=== PATIENT | male | born 1970 | race American Indian/Alaskan Native ===

== ENCOUNTER 2017-01-26 10:29 | Observation (INO) | payer OTHER ==
[2017-01-26 10:43] VITALS: BMI 27.1
[2017-01-26] MEDS ORDERED: HYDROmorphone 0.5 mg/0.5 ml ISec ONE (10:45)
[2017-01-26] MEDS ORDERED: Sodium Chloride 0.9% 1,000 ML IV ONE (11:00)
--- NOTE | 2017-01-26 11:01 | ED PDOC ---
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 no trauma Past Medical History Reviewed: Historical Data, Nursing Documentation, Vital Signs Vital Signs: Last Vital Signs Temp 97.1 F L 01/26/17 11:00 Pulse 53 L 01/26/17 12:00 Resp 16 01/26/17 12:00 BP 123/67 01/26/17 12:00 Pulse Ox 98 01/26/17 12:00 - Medical History PMH: No Chronic Diseases - Surgical History Surgical History: No Surg Hx - Family History Family History: States: Unknown Family Hx - Living Arrangements Living Arrangements: With Family - Social History Current smoker - smoking cessation education provided: No Alcohol: None Drugs: Denies - Allergies Allergies/Adverse Reactions: Allergies Allergy/AdvReac Type Severity Reaction Status Date / Time No Known Allergies Allergy Verified 01/26/17 10:56 CLAYTON Risk Score for UA/NSTEMI - CLAYTON Risk Score Age > 64: NO 3 or more CAD Risk Factors: NO Known CAD (Stenosis greater than 50%): NO Aspirin use in past 7 days: NO Severe Angina: NO EKG ST changes greater than 0.5mm: NO Positive Cardiac Marker: NO CLAYTON Score: 0 Risk %: 5% Wells Criteria for PE - Wells Criteria for Pulmonary Embolism Clinical Signs and Symptoms of DVT: No P.E is #1 Diagnosis, or Equally Likely: No Heart Rate >100: No Immobilization at least 3 days;Surgery previous 4 weeks: No Previous, objectively diagnosed PE or DVT: No Hemoptysis: No Malignancy w/treatment within 6 months, or palliative: No Total Score: 0 Review of Systems ROS Statement: Except As Marked, All Systems Reviewed And Found Negative Constitutional: Negative for: Fever, Chills Cardiovascular: Positive for: Chest Pain. Negative for: Edema, Light Headedness Respiratory: Negative for: Cough, Shortness of Breath Gastrointestinal: Negative for: Nausea, Vomiting, Abdominal Pain Genitourinary Male: Negative for: Dysuria Neurological: Negative for: Weakness, Numbness Physical Exam - Reviewed Nursing Documentation Reviewed: Yes Vital Signs Reviewed: Yes - Physical Exam Appears: Positive for: In Acute Distress (mod obvious pain) Head Exam: Positive for: ATRAUMATIC, NORMAL INSPECTION, NORMOCEPHALIC Skin: Positive for: Diaphoresis Eye Exam: Positive for: Normal appearance, EOMI, PERRL ENT: Positive for: Pharynx Is (clear,mmm) Neck: Positive for: Normal, Painless ROM, Supple Cardiovascular/Chest: Positive for: Chest Non Tender, Bradycardia. Negative for : Edema, Gallop, Murmur, Tachycardia Respiratory: Positive for: Normal Breath Sounds. Negative for: Decreased Breath Sounds, Accessory Muscle Use, Crackles, Rales, Rhonchi, Stridor, Wheezing Pulses-Radial (L): 2+ Pulses-Radial (R): 2+ Gastrointestinal/Abdominal: Positive for: Normal Exam, Bowel Sounds, Soft. Negative for: Tenderness Back: Positive for: Normal Inspection. Negative for: Vertebral Tenderness Extremity: Positive for: Normal ROM. Negative for: Tenderness, Pedal Edema, Calf Tenderness, Deformity, Swelling Neurologic/Psych: Positive for: Alert, plate printer II-XII, Oriented, Mood/Affect ( anxious). Negative for: Motor/Sensory Deficits - Laboratory Results Result Diagrams: 01/26/17 11:00 01/26/17 11:00 - ECG ECG: Positive for: Interpreted By Mo ECG Rhythm: Positive for: Normal QRS, Normal ST Segment, Sinus Bradycardia ( rate of 40). Negative for: ST/T Changes Interpretation Of Abn EKG: rate of 40, no evidence of ischemia O2 Sat by Pulse Oximetry: 98 Pulse Ox Interpretation: Normal - Radiology X-Ray: Interpreted by Mo X-Ray Interpretation: No Acute Disease, Other (poor effort nml cardiac and mediastinum silhouette) - Progress ED Course And Treament: ct a neg, repeat ecg rate of 45 sinus bradycardia unchanged no st changes. two undetectable trop r/o mi. advise close f/u with cardiology. pt and family agree' s with plan. Re-evaluation Time: 15:54 Condition: Improved Disposition - Clinical Impression Clinical Impression: Cholelithiasis - Patient ED Disposition Is Patient to be Admitted: No Counseled Patient/Family Regarding: Studies Performed, Diagnosis, Need For Followup, Rx Given - Disposition Disposition: Routine/Home Disposition Time: 15:56 Condition: GOOD
[2017-01-26 11:13] VITALS: TEMP 97.1
[2017-01-26 11:14] LABS: BASO % 0.2 % (0.0-2.0); EOS # 0.1 K/uL (0.0-0.7); EOS % 1.6 % (0.0-4.0); HEMATOCRIT 44.2 % (35.0-51.0); LYMPH # 3.5 K/uL (1.0-4.3); LYMPH % 44.5 % (20.0-40.0); MEAN CORPUSCULAR HEMOGLOBIN 28.8 pg (27.0-31.0); MEAN CORPUSCULAR HGB CONC 34.7 g/dL (33.0-37.0); MONO # 0.6 K/uL (0.0-0.8); NEUT # 3.5 K/uL (1.8-7.0); NEUT % 45.7 % (50.0-75.0); RED CELL DISTRIBUTION WIDTH 13.1 % (11.5-14.5); WHITE BLOOD COUNT 7.8 K/uL (4.8-10.8)
[2017-01-26 11:26] LABS: BLOOD UREA NITROGEN 18 mg/dl (9-20); GFR AFRICAN-AMERICAN > 60; GLUCOSE,RANDOM 121 mg/dL (75-110)
[2017-01-26 11:27] LABS: ALB/GLOB RATIO 1.4 (1.0-2.1); ALKALINE PHOSPHATASE 48 U/L (38-126); ALT/SGPT 50 U/L (21-72); AMYLASE 90 U/L (30-110); AST/SGOT 83 U/L (17-59); BILIRUBIN,TOTAL 1.2 mg/dl (0.2-1.3); CALCIUM 9.4 mg/dL (8.4-10.2); CARBON DIOXIDE 24 mmol/L (22-30); CHLORIDE 106 mmol/L (98-107); LIPASE 106 U/L (23-300); POTASSIUM 4.1 MMOL/L (3.6-5.0); SODIUM 146 mmol/l (132-148); TOTAL PROTEIN 7.4 G/DL (6.3-8.2)
--- NOTE | 2017-01-26 11:36 | RAD ---
HISTORY: cp COMPARISON: None available. TECHNIQUE: Chest, one view. FINDINGS: Examination limited by habitus and hypoinflation. LUNGS: Minimal basilar atelectasis. Please note that chest x-ray has limited sensitivity for the detection of pulmonary masses. PLEURA: No significant pleural effusion identified. No definite pneumothorax . CARDIOVASCULAR: Borderline cardiomegaly. OSSEOUS STRUCTURES: No acute osseous abnormality identified. VISUALIZED UPPER ABDOMEN: Unremarkable. OTHER FINDINGS: None. IMPRESSION: Minimal basilar atelectasis. Borderline cardiomegaly.
[2017-01-26 12:02] VITALS: RESP 16
[2017-01-26] MEDS ORDERED: Sodium Chloride 0.9% 50 ML IV ONE (12:53)
[2017-01-26] MEDS ORDERED: Iodixanol 320 MG/ML 100 ML BOTTLE IV ONE (12:53)
--- NOTE | 2017-01-26 13:54 | CT ---
CT chest, abdomen with IV contrast Indication: cp r/o aortic dissection Technique: Contiguous axial images of the chest and abdomen. Coronal and Sagittal reformats generated and reviewed. This CT exam was performed using 1 or more of the following dose reduction techniques: Automated exposure control, adjustment of the MAA and/or kV according to patient size, and/or use of iterative reconstruction technique. Oral contrast was not administered. 100 cc visi opaque 320. Radiation dose: Total exam DLP = 1690.13 MGy-cm. Comparison: Chest x-ray performed earlier the same day. Findings: Visualized portions of the inferior thyroid gland appear unremarkable. The mediastinal and hilar vascular structures appear within normal limits. The heart appears within normal limits of size. No focal consolidation. No pleural effusion. No pneumothorax. No suspicious pulmonary nodules measuring greater than 5 mm. The thoracic and abdominal aorta appear within normal limits of caliber. No evidence of aortic dissection. Please note motion artifact about the proximal ascending aorta as this examination is not gated which limits evaluation in this region. Cholelithiasis. The liver, spleen, kidneys, pancreas, and adrenal glands appear unremarkable. The stomach is nondistended. The included abdominal bowel loops appear within normal limits of caliber without evidence of intestinal obstruction. There is no definite free air. No acute osseous abnormality is detected. Impression: Cholelithiasis.
--- NOTE | 2017-01-26 15:46 | US ---
HISTORY: ruq abd pain COMPARISON: CT of the chest, abdomen, and pelvis performed the same day. TECHNIQUE: Sonographic evaluation of the right upper quadrant of the abdomen. FINDINGS: LIVER: Measures 15.5 cm in length and appears within normal limits of shape in echotexture. No focal mass identified. The main portal vein appears patent with normal directional flow. No intrahepatic bile duct dilatation. GALLBLADDER: Cholelithiasis. No evidence of gallbladder wall thickening or pericholecystic edema. Negative sonographic Gross's sign as assessed by the bird trapper. COMMON BILE DUCT: Measures 6 mm. PANCREAS: Not well-visualized. RIGHT KIDNEY: Measures 11.2 x 7.0 x 5.5 cm. No obstructing calculus or hydronephrosis. AORTA: Limited visualization appears grossly unremarkable. IVC: Limited visualization appears grossly unremarkable. OTHER FINDINGS: None . IMPRESSION: Cholelithiasis.
[2017-01-26 16:24] VITALS: PULSE 48; O2SAT 97
[2017-01-26 16:25] VITALS: BP 132/70
--- NOTE | 2017-01-28 11:49 | CARD ---
APPROVED REPORT EKG Measurement Heart [id number] <Conclusion> Marked sinus bradycardia Possible Left atrial enlargement Abnormal ECG
== END 2017-01-26 15:57 | disposition home or self-care (01) ==
LOC: H.ER 10:29 → H.EROBSV 14:31
PROVIDERS: ADMIT Emergency Medicine; ATTEND Emergency Medicine
DX: K80.20 Calculus of gallbladder without cholecystitis without obstruction (principal)